=== PATIENT | male | born 1955 | race Caucasian/White ===

== ENCOUNTER → 2018-01-17 02:54 | Outpatient (CLI) | payer BC, SELFPAY ==
[2018-01-17 11:11] LABS: Cholesterol 135 mg/dL (50-200); HDL Cholesterol 45 mg/dL (40-60); LDL CHOLESTEROL 74 mg/dL (<100); Triglyceride 127 mg/dL (30-150)
== END ==
PROVIDERS: PCP Internal Medicine; Visit Provider Internal Medicine
DX: E78.5 Hyperlipidemia, unspecified (principal)
CPT/HCPCS: 36415; 80061; 83721

== ENCOUNTER 2018-03-02 14:07 | Outpatient (CLI) | payer BC, SELFPAY ==
--- NOTE | 2018-03-02 14:20 | DI.RAD_ITS ---
SYMPTOMS/DIAGNOSIS: WHEEZING, SHORTNESS OF BREATH, R06.2, R06.02 PA AND LATERAL CHEST: The heart is normal in size. The lungs are clear. The mediastinal structures and pleura appear intact. CONCLUSION: Normal chest. No evidence of acute cardiopulmonary disease.
== END 2018-03-02 14:27 ==
PROVIDERS: PCP Internal Medicine; Visit Provider Internal Medicine
DX: R06.2 Wheezing (principal); R06.02 Shortness of breath
CPT/HCPCS: 71046

== ENCOUNTER 2018-04-21 15:34 | Outpatient (CLI) | payer BC, SELFPAY ==
[2018-04-21 16:18] LABS: Abs Immature Grans 0.02 k/cumm (0.0-0.09); Absolute Basophil Count 0.03 k/cumm (0.0-0.2); Absolute Eosinophil Count 0.34 k/cumm (0.0-0.7); Absolute Lymphocyte Count 1.85 k/cumm (1.2-3.4); Absolute Neutrophil Count 3.71 k/cumm (1.2-6.7); Basophils % 0.4; HCT 40.8 % (40.0-50.0); HGB 13.5 g/dL (13.5-17.5); Immature Grans % 0.3; Lymphocytes % 27.4; Mean Corp. HGB Concentration 33.1 g/dL (32.0-36.0); Mean Corpuscular Hemoglobin 29.5 pg (27.0-33.0); Mean Corpuscular Volume 89.1 fL (80-95); Mean Platelet Volume 9.9 fL (8.0-11.0); Monocytes % 11.9; Platelet Count 249 x1000/uL (130-400); RBC 4.58 m/cumm (4.50-6.00); RBC Distribution Width 13.2 % (11.8-14.1); White Blood Cell Count 6.75 k/cumm (4.4-10.8)
[2018-04-21 17:10] LABS: ALT 36 U/L (12-78); AST 21 U/L (15-37); Albumin 3.9 g/dL (3.4-5.0); Alkaline Phosphatase 103 U/L (46-116); Anion Gap 7.8 mmol/L (3-11); BUN 15 mg/dL (7-18); Bilirubin, Total 0.3 mg/dL (0.2-1.0); CO2 27.2 mmol/L (21.0-32.0); CREATININE 0.85 mg/dL (0.70-1.30); Calcium 8.9 mg/dL (8.5-10.1); Chloride 104 mmol/L (98-107); Glucose 116 mg/dL (70-100); Potassium 3.9 mmol/L (3.5-5.1); Sodium 139 mmol/L (136-145); TSH (W/Ref FT4) 1.09 uIU/mL (0.358-3.74); Total Protein 6.6 g/dL (6.4-8.2)
== END 2018-04-21 15:54 ==
PROVIDERS: PCP Internal Medicine; Visit Provider Internal Medicine
DX: I10 Essential (primary) hypertension (principal); R53.83 Other fatigue; R35.1 Nocturia
CPT/HCPCS: 36415; 80053; 84153; 84443; 85025

== ENCOUNTER 2018-07-03 08:09 | Day surgery (SDC) | payer BC, SELFPAY ==
--- NOTE | 2018-07-03 06:29 | W.COLOREPORT ---
Date of service: 07/03/18 Time of Service: 09:08 Colonoscopy Report Date of procedure: 07/03/18 Pre-op diagnosis general: Hx of polyps/Family history Post-op diagnosis procedure note: same (Polyps) Procedure: Colonoscopy with polypectomy by cold snare Surgeon: Lina Gallagher Anesthesia proc note operative: MAC (Elian Michael, NET UI DEVELOPER/ ASA 2) Estimated blood loss (mL): 5 Pathology: other (3 polyps) Complications: None Disposition: same day Indications: Mr. Lynne is a pleasant 62 year old male who was last seen in 2013 for a colonoscopy. 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 he also has a family history of colon cancer. Risks, benefits and complications have been reviewed. Complications include but are not limited to bleeding, pain, perforation, missed small lesion/polyp, sore throat, aspiration and adverse reaction to the medications. Questions were entertained and answered to their satisfaction and they wished to proceed. No guarantees were given or implied. Prep: Miralax/Dulcolax Procedure Start Time: :08 Procedure End Time: : Retraction Time: 28 Findings: 3 polyps, 2 in the ascending colon and 1 in the descending colon Procedure Description: After informed consent was obtained the patient was taken to the procedure room and placed in a left decubitous position. Monitors were applied and a time out was done. The patients name, date of , procedure, allergies to medications and metal in their body was reviewed. The patient was then sedated. Once sedated and comfortable a rectal exam was done. External exam was normal. Internal exam revealed a normal sphincter tone and no palpable masses. The prostate was smooth. The scope was then introduced and retro-flexed. No internal hemorrhoids were identified. The scope was then advanced to the cecum without difficulty. The TI and appendiceal orifice were identified. The prep was good. The scope was then slowly retracted over 28 minutes back into the rectum. Polyps were removed in the ascending colon x2 and in the descending colon x1. The scope was removed and the patient was woken up and taken back to Same day surgery in stable condition. The patient tolerated the procedure well and there were no immediate complications. Follow up: The patient should follow up in 3-5 years unless they develop changes in bowel habits or other new gastrointestinal complaints.
--- NOTE | 2018-07-03 06:30 | W.PM.DSUDISC ---
Discharge Plan Disposition Patient Disposition: HOME Condition: Good Discharge Details Reason For Visit: Hx of polyps/family history of colon cancer Attending Provider: Lina Gallagher Primary Care Provider: Argelia Lucas Home Meds and New Rx's Prescriptions: Continued albuterol sulfate 90 mcg/actuation HFA aerosol inhaler 2 puff IH QID Qty: 8.5 RF: 1 cholecalciferol (vitamin D3) [Vitamin D3] 400 UNIT capsule 1,000 unit PO DAILY Qty: 100 RF: 0 One-A-Day WeightSmart 1 EACH tablet 1 ea PO DAILY RF: 0 sertraline 50 MG tablet 50 mg PO DAILY Qty: 90 RF: 3 Atorvastatin Calcium 10 MG tablet 20 mg PO DAILY Qty: 90 RF: 5 lisinopril 10 mg tablet 10 mg PO DAILY Qty: 90 RF: 4 Discontinued bisacodyl [Dulcolax (bisacodyl)] 5 mg tablet,delayed release (DR/EC) 5 mg PO ONCE Qty: 4 RF: 0 polyethylene glycol 3350 17 gram/dose powder 255 g PO ONCE Qty: 255 RF: 0 Discharge Instructions Instructions: Colonoscopy (DC), Colorectal Polyps (DC) Additional Instructions: Findings: 3 polyps Follow up: 3-5 years Please call if you develop: fevers >101.5 Nausea or Vomiting Abdominal pain that is not transient DAY SURGERY UNIT POST COLONOSCOPY INSTRUCTIONS 1. Because there will be medication in your system for the next 24 hours, you may feel a little sleepy. Your coordination will be affected. Therefore: a. Do not drive or operate dangerous equipment for 24 hours. b. Do not drink alcohol beverages for 24 hours (not even beer). c. Plan to go home and rest for the day. 2. Generally there are no restrictions on your activity after a day or so has gone by, but you may feel a bit fatigued for a few days. 3 After you arrive home you may have a light meal and return to a normal diet as you can tolerate it without feeling sick to your stomach. 4. After surgery, you may feel pain or discomfort. This should be only transient, but if it persists please contact your doctor. 5. If there are any questions regarding the findings of your procedure, please feel free to contact your doctor. 6. If you are unable to contact your doctor with a problem, contact the hospital at [phone]. 7. Continue all your regular medications unless directed otherwise. I understand the above instructions and have no questions. Signature of Patient or Responsible Adult Escort Date/Time Name of Responsible Adult Escort Signature of Nurse Date/Time Activity:: Activity as Tolerated Diet:: As Tolerated Discharge Orders Discharge Orders: Discharge Order (Routine); Ordered 07/03/18 Ordered By: Lina Gallagher DS: Diagnosis Discharge Diagnosis (1) Polyp of colon: Status: Acute (2) S/P colonoscopy: Status: Acute
[2018-07-03 08:20] VITALS: BP 135/101; PULSE 92; RESP 16; TEMP 37; O2SAT 97
[2018-07-03] MEDS: Lactated Ringers 1,000 ML 80 ML IV (09:02)
--- NOTE | 2018-07-03 09:20 | BOWEL_PTH ---
PATIENT: Elian Connors LOC: [facility] U#:[id number] AGE/SX: 62/M ROOM: RE07/03/[address]: Lina Gallagher MD : [id number] BED: DIS: 07/03/2018 SPEC #: [id number] RECD: 07/03/18 12:25 STATUS: PAMELA RE #: [id number] SHERRY: 07/03/18 09:[address]: Lina Gallagher DEPT: Surgical Specimen RECD BY: Neisha Gill ENTERED: 07/03/18 12:26 SP TYPE: Bowel OTHR DR: Argelia Narvaez MD Tissues: 1 - BIOPSY BOWEL 2 - BIOPSY BOWEL Procedures: GROSS AND MICRO LEVEL 4 Comments: [id number]
[2018-07-03 10:15] VITALS: BP 113/79; PULSE 77; RESP 16; TEMP 36.3; O2SAT 95
== END 2018-07-03 10:33 | disposition home or self-care (01) ==
LOC: SUR 08:10
PROVIDERS: PCP Internal Medicine; Visit Provider Surgery
PROC: 0DJD8ZZ Inspection of Lower Intestinal Tract, Via Natural or Artificial Opening Endoscopic (ICD-10-PCS; CPT 45378; principal; 2018-07-03 09:15)
DX: Z12.11 Encounter for screening for malignant neoplasm of colon (principal); D12.2 Benign neoplasm of ascending colon; D12.4 Benign neoplasm of descending colon; Z86.010 Personal history of colon polyps; I10 Essential (primary) hypertension
CPT/HCPCS: 45385; 88305; J3010

== ENCOUNTER 2019-05-25 08:42 | Outpatient (CLI) | payer BC, SELFPAY ==
[2019-05-25 11:37] LABS: Calculated LDL 80 mg/dL; Cholesterol 146 mg/dL (<200); HDL Cholesterol 40 mg/dL (40-60); Triglyceride 132 mg/dL (<150)
== END 2019-05-25 09:02 ==
PROVIDERS: PCP Internal Medicine; Visit Provider Internal Medicine
DX: I10 Essential (primary) hypertension (principal); E78.5 Hyperlipidemia, unspecified
CPT/HCPCS: 36415; 80061

== ENCOUNTER 2020-03-26 03:15 | Outpatient (CLI) | payer BC, SELFPAY ==
[2020-03-26 13:11] LABS: Hemoglobin A1C 5.9 % (<5.7)
[2020-03-26 13:16] LABS: CREATININE 0.88 mg/dL (0.70-1.30); Calculated LDL 85 mg/dL (<100); Cholesterol 151 mg/dL (<200); HDL Cholesterol 40 mg/dL (40-60); Potassium 4.2 mmol/L (3.5-5.1); Triglyceride 133 mg/dL (<150)
== END 2020-03-26 03:35 ==
PROVIDERS: PCP Nurse Practitioner; Visit Provider Nurse Practitioner
DX: I10 Essential (primary) hypertension (principal); E78.5 Hyperlipidemia, unspecified; Z13.1 Encounter for screening for diabetes mellitus
CPT/HCPCS: 36415; 80061; 82565; 83036; 84132

== ENCOUNTER 2020-06-10 03:31 | Outpatient (CLI) | payer BC, SELFPAY ==
[2020-06-10 11:48] LABS: HCT 42.1 % (40.0-50.0); MCHC 33.3 % (32.0-36.0); MCV 87.2 fL (80-95); MPV 9.6 fL (8.0-11.0); Platelet Count 290 10^3/uL (130-400); RBC 4.83 10^6/uL (4.36-5.78); RDW-SD 41.6 fL
[2020-06-10 12:07] LABS: Hemoglobin A1C 6.1 % (<5.7)
[2020-06-10 12:13] LABS: ALT 29 U/L (16-63); AST 14 U/L (15-37); Albumin 3.9 g/dL (3.4-5.0); Alkaline Phosphatase 91 U/L (46-116); Bilirubin, Direct 0.11 mg/dL (0.00-0.20); Bilirubin, Total 0.6 mg/dL (0.2-1.0); Total Protein 6.9 g/dL (6.4-8.2)
[2020-06-10 12:23] LABS: Calculated LDL 71 mg/dL (<100); Cholesterol 135 mg/dL (<200); HDL Cholesterol 43 mg/dL (40-60); Triglyceride 106 mg/dL (<150)
[2020-06-13 20:50] LABS: 1,25-Dihydroxyvitamin D 39 pg/mL (18-64)
== END 2020-06-10 03:51 ==
PROVIDERS: PCP Nurse Practitioner; Visit Provider Nurse Practitioner
DX: D64.9 Anemia, unspecified (principal); I10 Essential (primary) hypertension; E78.2 Mixed hyperlipidemia; R73.03 Prediabetes
CPT/HCPCS: 36415; 80061; 80076; 85027; 82652; 83036

== ENCOUNTER 2020-11-14 03:54 | Outpatient (CLI) | payer BC, SELFPAY ==
[2020-11-14 11:04] LABS: CREATININE 0.9 mg/dL (0.70-1.30); Potassium 4.3 mmol/L (3.5-5.1)
[2020-11-14 12:00] LABS: Hemoglobin A1C 6.1 % (<5.7)
== END 2020-11-14 03:55 | disposition home or self-care (01) ==
LOC: LBO 03:54
PROVIDERS: PCP Nurse Practitioner; Visit Provider Nurse Practitioner
DX: R73.03 Prediabetes (principal); I10 Essential (primary) hypertension
CPT/HCPCS: 36415; 82565; 83036; 84132

== ENCOUNTER 2021-05-25 03:33 | Outpatient (CLI) | payer BC, SELFPAY ==
[2021-05-25 17:41] LABS: Calculated LDL 71 mg/dL (<100); Cholesterol 138 mg/dL (<200); HDL Cholesterol 44 mg/dL (40-60); Potassium 3.9 mmol/L (3.5-5.1); Triglyceride 115 mg/dL (<150)
[2021-05-25 18:19] LABS: Hemoglobin A1C 5.9 % (<5.7)
== END 2021-05-25 03:34 | disposition home or self-care (01) ==
LOC: LBO 03:33
PROVIDERS: PCP Nurse Practitioner; Visit Provider Nurse Practitioner
DX: E78.2 Mixed hyperlipidemia (principal); I10 Essential (primary) hypertension; R73.03 Prediabetes
CPT/HCPCS: 36415; 80061; 82565; 83036; 84132; 85610

== ENCOUNTER 2022-05-11 03:24 | Outpatient (CLI) | payer BC, SELFPAY ==
[2022-05-11 07:36] LABS: HCT 42.8 % (40.0-50.0); HGB 14.4 g/dL (13.5-17.5); MCH 29.3 pg (27.0-33.0); MCHC 33.6 % (32.0-36.0); MCV 87 fL (80-95); MPV 9.6 fL (8.0-11.0); Platelet Count 232 10^3/uL (130-400); RBC 4.91 10^6/uL (4.36-5.78); RDW 12.7 % (11.8-14.1); WBC 7.17 10^3/uL (4.4-10.8)
[2022-05-11 08:54] LABS: ALT 29 U/L (16-63); AST 15 U/L (15-37); Albumin 3.9 g/dL (3.4-5.0); Alkaline Phosphatase 103 U/L (46-116); Anion Gap 7.6 mmol/L (3-11); BUN 17 mg/dL (7-18); Bilirubin, Total 0.5 mg/dL (0.2-1.0); CO2 29.4 mmol/L (21.0-32.0); CREATININE 0.9 mg/dL (0.70-1.30); Calcium 8.8 mg/dL (8.5-10.1); Calculated LDL 73 mg/dL (<100); Chloride 105 mmol/L (98-107); Cholesterol 142 mg/dL (<200); Estimated GFR 93.61 (mL/min/1.73m2); Glucose 108 mg/dL (74-106); HDL Cholesterol 47 mg/dL (40-60); Potassium 3.9 mmol/L (3.5-5.1); Sodium 142 mmol/L (136-145); Total Protein 7.4 g/dL (6.4-8.2); Triglyceride 114 mg/dL (<150)
[2022-05-12 10:48] LABS: Hepatitis C Ab w Rflx HCV PCR Negative (Negative)
== END 2022-05-11 03:25 | disposition home or self-care (01) ==
LOC: LBO 03:24
PROVIDERS: PCP Nurse Practitioner Family; Visit Provider Nurse Practitioner Family
DX: E78.2 Mixed hyperlipidemia (principal); I10 Essential (primary) hypertension; R73.03 Prediabetes
CPT/HCPCS: 36415; 80053; 80061; 85027; 86803; 83036

== ENCOUNTER 2023-07-13 10:24 | Outpatient (CLI) | payer BC, SELFPAY ==
[2023-07-13 10:34] LABS: HCT 43.6 % (40.0-50.0); MCH 29.9 pg (27.0-33.0); MCHC 34.4 % (32.0-36.0); MCV 87 fL (80-95); MPV 9.3 fL (8.0-11.0); Platelet Count 253 10^3/uL (130-400); RBC 5.02 10^6/uL (4.36-5.78); RDW 12.8 % (11.8-14.1); RDW-SD 40.2 fL; WBC 7.33 10^3/uL (4.4-10.8)
[2023-07-13 10:55] LABS: ALT 39 U/L (16-63); AST 14 U/L (15-37); Alkaline Phosphatase 94 U/L (46-116); Anion Gap 7.9 mmol/L (3-11); BUN 16 mg/dL (7-18); Bilirubin, Total 0.5 mg/dL (0.2-1.0); CO2 30.1 mmol/L (21.0-32.0); CREATININE 0.9 mg/dL (0.70-1.30); Calcium 9.1 mg/dL (8.5-10.1); Chloride 104 mmol/L (98-107); Estimated GFR 93.03 (mL/min/1.73m2); Glucose 104 mg/dL (74-106); Potassium 3.9 mmol/L (3.5-5.1); Sodium 142 mmol/L (136-145); Total Protein 7.6 g/dL (6.4-8.2)
[2023-07-13 11:25] LABS: Hemoglobin A1C 5.9 % (<5.7)
[2023-07-13 13:47] LABS: Calculated LDL 91 mg/dL (<100); Cholesterol 170 mg/dL (<200); HDL Cholesterol 53 mg/dL (40-60); Triglyceride 132 mg/dL (<150)
== END 2023-07-13 10:25 | disposition home or self-care (01) ==
LOC: LBO 10:24
PROVIDERS: PCP Nurse Practitioner Family; Visit Provider Nurse Practitioner Family
DX: E78.5 Hyperlipidemia, unspecified (principal); G47.9 Sleep disorder, unspecified; I10 Essential (primary) hypertension; N52.9 Male erectile dysfunction, unspecified; R73.03 Prediabetes; Z00.00 Encounter for general adult medical examination without abnormal findings; Z80.0 Family history of malignant neoplasm of digestive organs
CPT/HCPCS: 36415; 80053; 80061; 84153; 85027; 83036

== ENCOUNTER 2023-07-14 10:31 | Outpatient (CLI) | payer BC, SELFPAY ==
[2023-07-15 17:39] LABS: PSA, Screening 1.5 ng/mL (<=4.5)
== END 2023-07-14 10:32 | disposition home or self-care (01) ==
LOC: LBO 10:31
PROVIDERS: PCP Nurse Practitioner Family; Visit Provider Nurse Practitioner Family
DX: Z00.00 Encounter for general adult medical examination without abnormal findings (principal); G47.9 Sleep disorder, unspecified; R73.03 Prediabetes; E78.5 Hyperlipidemia, unspecified; Z80.0 Family history of malignant neoplasm of digestive organs; I10 Essential (primary) hypertension; N52.9 Male erectile dysfunction, unspecified
CPT/HCPCS: 36415; 84153

== ENCOUNTER 2024-02-15 14:34 | Outpatient (CLI) | payer BC, SELFPAY ==
[2024-02-15 14:18] LABS: Abs Immature Grans 0.03 10^3/uL (0.0-0.06); Absolute Eosinophil Count 0.27 10^3/uL (0.0-0.7); Absolute Lymphocyte Count 2.45 10^3/uL (1.2-3.4); Absolute Monocyte Count 1.12 10^3/uL (0.1-0.8); Absolute Neutrophil Count 6.21 10^3/uL (1.2-6.7); Eosinophils % 2.7 %; HCT 41.1 % (40.0-50.0); HGB 13.8 g/dL (13.5-17.5); Immature Grans % 0.3 %; Lymphocytes % 24.1 %; MCH 29.6 pg (27.0-33.0); MCHC 33.6 % (32.0-36.0); MCV 88 fL (80-95); MPV 9.7 fL (8.0-11.0); Neutrophils % 60.9 %; Platelet Count 253 10^3/uL (130-400); RBC 4.67 10^6/uL (4.36-5.78); RDW 12.7 % (11.8-14.1); WBC 10.18 10^3/uL (4.4-10.8)
[2024-02-15 15:18] LABS: Hemoglobin A1C 6.2 % (<5.7)
[2024-02-15 15:26] LABS: Iron 62 ug/dL (65-175); Total Iron Binding Capacity 296 ug/dL (250-450); Transferrin Sat 21 % (20-55)
[2024-02-15 15:48] LABS: ALT 41 U/L (16-63); AST 25 U/L (15-37); Alkaline Phosphatase 101 U/L (46-116); Anion Gap 7.8 mmol/L (3-11); BUN 15 mg/dL (7-18); Bilirubin, Total 0.48 mg/dL (0.2-1.0); CO2 29.2 mmol/L (21.0-32.0); CREATININE 1.1 mg/dL (0.70-1.30); Chloride 103 mmol/L (98-107); Estimated GFR 72.67 (mL/min/1.73m2); Ferritin 364 ng/mL (26-388); Glucose 93 mg/dL (74-106); Potassium 3.8 mmol/L (3.5-5.1); Sodium 140 mmol/L (136-145); Total Protein 6.9 g/dL (6.4-8.2); Vitamin B12 488 pg/mL (193-986)
[2024-02-15 16:49] LABS: NT-proBNP 46 pg/mL (<300)
[2024-02-16 09:43] LABS: Lyme Ab w Rflx to Lyme Confirm Negative (Negative)
[2024-02-18 00:49] LABS: Anaplasma phagocytophilum Negative (Negative); B. miyamotoi PCR Negative (Negative); Babesia divergens/MO-1 Negative (Negative); Babesia duncani Negative (Negative); Babesia microti Negative (Negative); Ehrlichia chaffeensis Negative (Negative); Ehrlichia ewingii/canis Negative (Negative); Ehrlichia muris eauclairensis Negative (Negative)
== END 2024-02-15 14:35 | disposition home or self-care (01) ==
LOC: LBO 14:34
PROVIDERS: PCP Nurse Practitioner Family; Visit Provider Nurse Practitioner Family
DX: I10 Essential (primary) hypertension (principal); R73.03 Prediabetes; R60.0 Localized edema; D64.9 Anemia, unspecified; R53.83 Other fatigue
CPT/HCPCS: 36415; 80053; 87798; 82607; 82728; 83036; 83540; 83550; 83735; 83880; 85025; 86618

== ENCOUNTER 2024-08-03 00:47 | Outpatient (CLI) | payer BC, SELFPAY ==
[2024-08-03 12:38] LABS: HCT 43.2 % (40.0-50.0); HGB 14.3 g/dL (13.5-17.5); MCH 29.2 pg (27.0-33.0); MCHC 33.1 % (32.0-36.0); MCV 88 fL (80-95); MPV 10.3 fL (8.0-11.0); Platelet Count 247 10^3/uL (130-400); RBC 4.89 10^6/uL (4.36-5.78); RDW 12.8 % (11.8-14.1); RDW-SD 41.7 fL; WBC 7.63 10^3/uL (4.4-10.8)
[2024-08-03 12:53] LABS: ALT 27 U/L (16-63); AST 16 U/L (15-37); Alkaline Phosphatase 101 U/L (46-116); Anion Gap 5.8 mmol/L (3-11); BUN 14 mg/dL (7-18); CO2 29.2 mmol/L (21.0-32.0); CREATININE 0.9 mg/dL (0.70-1.30); Calcium 9.1 mg/dL (8.5-10.1); Calculated LDL 57 mg/dL (<100); Chloride 105 mmol/L (98-107); Cholesterol 131 mg/dL (<200); Estimated GFR 92.45 (mL/min/1.73m2); Glucose 91 mg/dL (74-106); HDL Cholesterol 50 mg/dL (>or=40); Potassium 3.4 mmol/L (3.5-5.1); Sodium 140 mmol/L (136-145); Total Protein 7.4 g/dL (6.4-8.2); Triglyceride 121 mg/dL (<150)
[2024-08-03 12:58] LABS: Hemoglobin A1C 6.2 % (<5.7)
[2024-08-06 08:46] LABS: PSA, Screening 1.5 ng/mL (<=4.5)
== END 2024-08-03 00:48 | disposition home or self-care (01) ==
LOC: LOS 00:47
PROVIDERS: PCP Nurse Practitioner Family; Visit Provider Nurse Practitioner Family
DX: Z00.00 Encounter for general adult medical examination without abnormal findings (principal); I10 Essential (primary) hypertension; E78.2 Mixed hyperlipidemia; R73.03 Prediabetes; G47.33 Obstructive sleep apnea (adult) (pediatric); Z12.5 Encounter for screening for malignant neoplasm of prostate
CPT/HCPCS: 36415; 80053; 80061; 84153; 85027; 83036